=== PATIENT | female | born 1985 | race African-American/Black ===

== ENCOUNTER 2016-12-07 21:27 | Observation (INO) | payer MEDICAID, OTHER ==
[~2016-12-07] VITALS: Ht 162.6 cm; Wt 68.0 kg
[~2016-12-07 21:27] MED LIST: ASPI81TA11 PO
[2016-12-07 21:28] VITALS: BP 116/71; PULSE 72; RESP 16; TEMP 98.4; O2SAT 99
[2016-12-07 22:00] VITALS: PULSE 78; RESP 16; O2SAT 100
[2016-12-07] MEDS ORDERED: SODIUM CHLORIDE 0.9% FLUSH 5 ML FLUSH IVF PRN (22:00)
[2016-12-07] MEDS ORDERED: ASPIRIN 81 MG CHEW TAB PO ONE (22:00)
--- NOTE | 2016-12-07 22:13 | RADRPT ---
EXAM DATE/TIME: 12/07/2016 22:05 [place] COMPARISON: CHEST SINGLE AP, September 08, 2016, 20:16. INDICATIONS : Shortness of breath with chest pain. MEDICAL HISTORY : None. SURGICAL HISTORY : None. ENCOUNTER: Initial ACUITY: 1 day PAIN SCORE: 4/10 LOCATION: Bilateral chest FINDINGS: A single view of the chest demonstrates the lungs to be symmetrically aerated without evidence of mas s, infiltrate or effusion. The cardiomediastinal contours are unremarkable. Osseous structures are intact. CONCLUSION: The lungs are clear. Linden Castaneda MD on December 07, 2016 at 22:11 Board Certified Radiologist. This report was verified electronically.
--- NOTE | 2016-12-07 22:15 | PD ---
HPI Chief Complaint: Chest Pain Time Seen by Provider: 21:47 Travel History International Travel<30 days: No Contact w/Intl Traveler<30days: No Traveled to known affect area: No History of Present Illness HPI The patient is a 31 year old female who presents to the [facility] emergency department with a history of chest pain that awoke her from sound sleep approximately 2-3 hours ago. The patient reports that the pain is a sharp , stabbing pain in the upper portion of the left breast. She reports that there is no tenderness to touch. She denies having any injury to the area or doing any heavy lifting or new exercise program. The patient reports that she has had chest pain in the past with a reportedly negative workup. She reports that she had chest pain and a syncopal event on September 082015. The patient reports that she has shortness of breath associated with this pain, left arm aching, and nausea. She denies having any diaphoresis. She denies having any personal history of diabetes, hypertension, or hyperlipidemia. She does report that she smokes one pack of cigarettes per day. She also has a family history of cardiac disease specifically in her dad who had his first myocardial infarction in his 30s. She denies having any prior history of DVT or PE. The patient denies having any lower extremities edema, calf pain, or erythema. The patient denies any recent fevers, cough, congestion, neck pain, abdominal pain, vomiting, diarrhea, urinary symptoms, or neurologic symptoms. [facility] Past Medical History Narrative Medical The patient's past medical history is significant for thrombocytopenia and , anxiety and depression, asthma that resolved in childhood, history of migraine headaches, history of endometriosis, history of ovarian cysts. I review the patient's record reveals that the patient was admitted to the hospital on September 08 related to chest pain and syncope. The patient had a stress test done at that time that showed an ejection fraction of 58%, small mild area of stress-induced ischemia of the cardiac apex was noted. The patient had a neurology consultation for her syncope. That portion of the workup was essentially unremarkable. Asthma: Yes Blood Disorders: Yes (THROMBOCYTOPENIA DURING ) Anxiety: Yes Depression: Yes Heart Rhythm Problems: No Cardiac Catheterization: No Cardiovascular Problems: No High Cholesterol: No Congestive Heart Failure: No Diabetes: No Diminished Hearing: No Gastrointestinal Disorders: No Headaches: Yes Psychiatric: Yes Reproductive: Yes (ENDOMETROSIS) Integumentary: Yes Immunizations Current: Yes Migraines: Yes ?: Not Menopausal: No : 3 Para: 2 Miscarriage: 1 : 0 Ovarian Cysts: Yes Tubal Ligation: Yes Past Surgical History Narrative Surgical The patient's past surgical history is significant for bilateral tubal ligation , laparoscopy for ovarian cysts, ACL repair of the left knee. Abdominal Surgery: Yes Coronary Artery Bypass Graft: No Genitourinary Surgery: Yes Gynecologic Surgery: Yes (LAP ovarian cysts) Other Surgery: Yes Family History Family Myocardial Infarction: Yes (father) Social History Alcohol Use: Yes (occ) Tobacco Use: Yes (1 ppd) Substance Use: No Allergies-Medications (Allergen,Severity, Reaction): Coded Allergies: Penicillin (Verified Allergy, Mild, RASH, 12/07/16) Sulfa (Verified Allergy, Mild, RASH, 12/07/16) Reported Meds & Prescriptions Reported Meds & Active Scripts Active Aspirin EC (Aspirin) 81 Mg Tabdr 81 Mg PO DAILY 30 Days Review of Systems Except as stated in HPI: all other systems reviewed are Neg General / Constitutional: No: Fever Eyes: No: Visual changes HENT: No: Headaches Cardiovascular: Positive: Chest Pain or Discomfort, No: Diaphoresis Respiratory: Positive: Shortness of Breath Gastrointestinal: Positive: Nausea, No: Abdominal Pain Genitourinary: No: Dysuria Musculoskeletal: No: Pain Skin: No Rash Neurologic: No: Weakness Psychiatric: No: Depression Endocrine: No: Polydipsia Hematologic/Lymphatic: No: Easy Bruising Physical Exam Narrative General: The patient is a well-developed well-nourished female in no acute distress. Head and Neck exam: Head is normocephalic atraumatic. Eyes: Pupils are equal round and reactive to light. Nose: Midline septum with pink mucous membranes Mouth: Dentition unremarkable. Moist mucus membranes. Posterior oropharynx is not erythematous. No tonsillar hypertrophy. Uvula midline. Airway patent. Neck: No palpable lymphadenopathy. No nuchal rigidity. No thyromegaly. Cardiovascular: Regular rate and rhythm without murmurs, gallops, or rubs. No pulse deficit to the extremities. No chest wall tenderness on palpation. No erythema or ecchymosis. No step-off or crepitus. Lungs: Clear to auscultation bilaterally. No wheezes, rhonchi, or rales. Abdomen: Soft, without tenderness to palpation in all 4 quadrants of the abdomen. No guarding, rebound, or rigidity. Normal bowel sounds are audible. Extremities: No clubbing, cyanosis, or edema. 2+ pulses in all 4 extremities. No calf tenderness on palpation. Negative Homans sign. No palpable cords. Back: No spinous process tenderness to palpation. No costovertebral angle tenderness to palpation. Neurologic Exam: Grossly nonfocal. Skin Exam: No rash noted. Intact skin that is warm and dry. Data Data Last Documented VS Vital Signs Date Time Temp Pulse Resp B/P Pulse Ox O2 Delivery O2 Flow Rate FiO2 12/07/16 22:00 100 Room Air 12/07/16 22:00 78 16 12/07/16 21:28 98.4 116/71 Orders Electrocardiogram (12/07/16 21:52) B-Type Natriuretic Peptide (12/07/16 21:52) Ckmb (Isoenzyme) Profile (12/07/16 21:52) Complete Blood Count With Diff (12/07/16 21:52) Comprehensive Metabolic Panel (12/07/16 21:52) D-Dimer (12/07/16 21:52) Magnesium (Mg) (12/07/16 21:52) Prothrombin Time / Inr (Pt) (12/07/16 21:52) Act Partial Throm Time (Ptt) (12/07/16 21:52) Troponin I (12/07/16 21:52) Lipase (12/07/16 21:52) Chest, Single Ap (12/07/16 21:52) Ecg Monitoring (12/07/16 21:52) Bilateral Bp Monitoring (12/07/16 21:52) Iv Access Insert/Monitor (12/07/16 21:52) Oximetry (12/07/16 21:52) Oxygen Administration (12/07/16 21:52) Aspirin Chew (Aspirin Chew) (12/07/16 22:00) Sodium Chloride 0.9% Flush (Ns Flush) (12/07/16 22:00) Ed Urine Pregnancytest Poc (12/07/16 21:52) Nitroglycerin Sl (Nitrostat Sl) (12/07/16 22:30) Aspirin Chew (Aspirin Chew) (12/07/16 22:30) Sodium Chlorid 0.9% 500 Ml Inj (Ns 500 M (12/07/16 22:30) CKMB (12/07/16 21:55) CKMB% (12/07/16 21:55) Place In Observation (12/07/16 23:59) Activity Bed Rest With Brp (12/07/16 23:59) Vital Signs (Adult) Q4H (12/07/16 23:59) Cardiac Rhythm .As Directed (12/07/16 23:59) ^ Notify Dr: Other .PRN (12/07/16 23:59) ^ Notify Dr. Parameters (12/07/16 23:59) Resp Oxygen Nasal Cannula (12/07/16 ) Ckmb (Isoenzyme) Profile (12/08/16 01:00) Troponin I (12/08/16 01:00) Troponin I (12/08/16 04:00) Electrocardiogram (12/08/16 01:00) Electrocardiogram (12/08/16 04:00) ^ Obtain (12/07/16 23:59) Sodium Chloride 0.9% Flush (Ns Flush) (12/08/16 00:00) Sodium Chloride 0.9% Flush (Ns Flush) (12/08/16 09:00) Acetaminophen (Tylenol) (12/08/16 00:00) Ondansetron Inj (Zofran Inj) (12/08/16 00:00) Pantoprazole (Protonix) (12/08/16 09:00) Aspirin (Aspirin) (12/08/16 09:00) Alum Plant Supervisor / Telemetry ADAN.Q8H (12/07/16 23:59) Admit Order (Ed Use Only) (12/07/16 23:59) CKMB (12/08/16 00:53) CKMB% (12/08/16 00:53) Labs Laboratory Tests Test 12/07/16 21:55 White Blood Count 6.4 TH/MM3 Red Blood Count 4.41 MIL/MM3 Hemoglobin 11.4 GM/DL Hematocrit 35.4 % Mean Corpuscular Volume 80.2 FL Mean Corpuscular Hemoglobin 25.9 PG Mean Corpuscular Hemoglobin 32.2 % Concent Red Cell Distribution Width 15.5 % Platelet Count 191 TH/MM3 Mean Platelet Volume 11.4 FL Neutrophils (%) (Auto) 38.9 % Lymphocytes (%) (Auto) 47.3 % Monocytes (%) (Auto) 9.1 % Eosinophils (%) (Auto) 4.3 % Basophils (%) (Auto) 0.4 % Neutrophils # (Auto) 2.5 TH/MM3 Lymphocytes # (Auto) 3.0 TH/MM3 Monocytes # (Auto) 0.6 TH/MM3 Eosinophils # (Auto) 0.3 TH/MM3 Basophils # (Auto) 0.0 TH/MM3 CBC Comment DIFF FINAL Differential Comment Prothrombin Time 10.8 SEC Prothromb Time International 1.0 RATIO Ratio Activated Partial 29.3 SEC Thromboplast Time D-Dimer Quantitative (PE/DVT) LESS THAN 0.19 MG/L FEU Sodium Level 142 MEQ/L Potassium Level 3.5 MEQ/L Chloride Level 108 MEQ/L Carbon Dioxide Level 26.8 MEQ/L Anion Gap 7 MEQ/L Blood Urea Nitrogen 12 MG/DL Creatinine 0.77 MG/DL Estimat Glomerular Filtration 106 ML/MIN Rate Random Glucose 82 MG/DL Calcium Level 8.3 MG/DL Magnesium Level 1.8 MG/DL Total Bilirubin 0.6 MG/DL Aspartate Amino Transf 12 U/L (AST/SGOT) Alanine Aminotransferase 19 U/L (ALT/SGPT) Alkaline Phosphatase 53 U/L Total Creatine Kinase 266 U/L Creatine Kinase MB 0.8 NG/ML Creatine Kinase MB % 0.3 % Troponin I LESS THAN 0.02 NG/ML B-Type Natriuretic Peptide 6 PG/ML Total Protein 6.7 GM/DL Albumin 3.6 GM/DL Lipase 279 U/L MDM Medical Decision Making Medical Screen Exam Complete: Yes Emergency Medical Condition: Yes Medical Record Reviewed: Yes Interpretation(s) Last Impressions Chest X-Ray 12/07/162151 Signed Impressions: Service Date/Time: Wednesday, December 07, 2016 22:05 - CONCLUSION: The lungs are clear. Linden Castaneda MD Differential Diagnosis Acute coronary syndrome, versus pulmonary embolism, versus pleurisy, versus costochondritis, versus pneumonia, versus pneumothorax. Narrative Course During the course of the patients emergency department visit, the patients history, examination, and differential diagnosis were reviewed with the patient. The patient had IV access obtained and blood work sent for analysis. The patient was placed on a ekg monitor tech with oximetry and blood pressure monitoring. The patient had an EKG done on arrival. The patient's EKG shows a sinus rhythm heart rate of 78, no acute ST segment elevation or depression. QRS duration is 85 ms, QTC 376 ms. The patient was provided aspirin 81 mg by mouth 1. The patient reports that she did take one baby aspirin earlier today. She reports that she takes this daily. The patient was given a sublingual nitroglycerin 1. The patient continued to have discomfort and was given Protonix 40 mg IV, Toradol 15 mg IV. The patients laboratory studies were reviewed and remarkable for a white count of 6.4, hemoglobin 11.4, platelets 191 with lymphocytes 47.3, CMP is remarkable for chloride of 108, calcium 8.3, AST 12, CPK 266 with 0.3 CK-MB. BNP is 6, troponin I less than 0.02, lipase 279. PT PTT unremarkable, d-dimer less than 0.19 decreased the likelihood of pulmonary embolism in this patient with no other significant risk factors. Radiology studies were reviewed and remarkable for a chest x-ray that shows no acute abnormality. The patients results were discussed with the patient, including the plan of care. I explained that further testing and/ or monitoring is indicated based on the patients history, examination, and/ or laboratory findings. Therefore, I recommended admission for additional evaluation. The patient expressed understanding and was agreeable with this plan. The patient was admitted to the hospital in stable condition and sent to a bed under the care of the chest pain center. Diagnosis Primary Impression: Chest pain, rule out acute myocardial infarction Admitting Information Admitting Physician Requests: Observation Kamla Ogden MD Dec 07, 2016 22:15
[2016-12-07 22:25] LABS: AUTOMATED NEUTROPHIL # 2.5 TH/MM3 (1.8-7.7); BASOPHIL % 0.4 % (0.0-2.0); EOSINOPHIL # 0.3 TH/MM3 (0-0.4); EOSINOPHIL % 4.3 % (0.0-4.0); HEMATOCRIT 35.4 % (35.0-46.0); HEMO FLAGS DIFF FINAL; LYMPH % 47.3 % (9.0-44.0); MEAN CELL VOLUME 80.2 FL (80.0-100.0); MEAN CORPUSCULAR HEMOGLOBIN 25.9 PG (27.0-34.0); MEAN CORPUSCULAR HGB CONC 32.2 % (32.0-36.0); MONO % 9.1 % (0.0-8.0); NEUT % 38.9 % (16.0-70.0); PLATELET COUNT 191 TH/MM3 (150-450); RED BLOOD COUNT 4.41 MIL/MM3 (4.00-5.30); RED CELL DISTRIBUTION WIDTH 15.5 % (11.6-17.2); WHITE BLOOD COUNT 6.4 TH/MM3 (4.0-11.0)
[2016-12-07] MEDS ORDERED: NITROGLYCERIN 0.4 MG SL 25 TABS/BTL SL ONE (22:30)
[2016-12-07] MEDS ORDERED: ASPIRIN 81 MG CHEW TAB CHEW ONE (22:30)
[2016-12-07] MEDS ORDERED: SODIUM CHLORID 0.9% 500 ML INJ 500 ML IV ONE (22:30)
[2016-12-07 22:39] LABS: ALT (GPT) 19 U/L (10-53); ANION GAP 7 MEQ/L (5-15); AST (GOT) 12 U/L (15-37); BICARBONATE 26.8 MEQ/L (21.0-32.0); BLOOD UREA NITROGEN 12 MG/DL (7-18); CHLORIDE 108 MEQ/L (98-107); GLOMERULAR FILTRATION RATE 106 ML/MIN (>89); MAGNESIUM 1.8 MG/DL (1.5-2.5); POTASSIUM 3.5 MEQ/L (3.5-5.1); SODIUM (NA) 142 MEQ/L (136-145)
[2016-12-07 22:43] LABS: ALKALINE PHOSPHATASE 53 U/L (45-117); CREATINE KINASE 266 U/L (26-192); TOTAL BILIRUBIN ADULT 0.6 MG/DL (0.2-1.0)
[2016-12-07 22:57] LABS: CKMB 0.8 NG/ML (0.5-3.6)
[2016-12-07 23:08] LABS: APTT (PATIENT) 29.3 SEC (24.3-30.1); PROTHROMBIN TIME - PATIENT 10.8 SEC (9.8-11.6)
[2016-12-08] VITALS (9 sets, daily range): BP systolic 82–131; BP diastolic 42–65; PULSE 60–85; RESP 16–20; TEMP 97.7–98.5; O2SAT 97–100
[2016-12-08] MEDS ORDERED: SODIUM CHLORIDE 0.9% FLUSH 5 ML FLUSH IVF PRN
[2016-12-08] MEDS ORDERED: ONDANSETRON HCL 4 MG/2 ML VIAL IV PRN
[2016-12-08] MEDS ORDERED: ACETAMINOPHEN 500 MG CPLT PO PRN
[2016-12-08] MEDS ORDERED: KETOROLAC TROMETHAMINE 30 MG/ML (IVP) VIAL IV PUSH ONE (00:15)
[2016-12-08 01:22] LABS: CREATINE KINASE 233 U/L (26-192)
[2016-12-08 01:34] LABS: CKMB 0.5 NG/ML (0.5-3.6)
[2016-12-08] MEDS ORDERED: SODIUM CHLOR 0.9% 1000 ML INJ 1,000 ML IV SCH (08:34)
[2016-12-08] MEDS ORDERED: ASPIRIN 325 MG TAB PO SCH (09:00)
[2016-12-08] MEDS ORDERED: PANTOPRAZOLE SOD 40 MG DELAYED RELEASE TAB PO SCH (09:00)
[2016-12-08] MEDS ORDERED: SODIUM CHLORIDE 0.9% FLUSH 5 ML FLUSH IVF SCH (09:00)
[2016-12-08 09:26] LABS: HDL CHOLESTEROL 57.7 MG/DL (40.0-60.0)
--- NOTE | 2016-12-08 10:00 | MH ---
cc: WILL DOUGLASS MD DATE OF ADMISSION: 12/08/2016 DATE OF : 1985 CHIEF COMPLAINT Chest pain. HISTORY OF PRESENT ILLNESS This is a 31-year-old female that presents to the ED via private vehicle complaining of her chest hurting. She describes it as a stabbing discomfort that began yesterday. She states she has had this in the past. She has been here two other times since August. On review of records she had a Lexiscan September 09, 2016 which revealed a small mild area of stress induced ischemia at the apex with EF of 56%. No further testing was obtained at the time. She has a hard time describing how long the discomfort lasts since yesterday. She says it seems like it may have lasted all day but it may go away for seconds at a time. She is short of breath and nauseous at times and also feeling dizzy. Denies diaphoresis. Denies sensation of heart beating rapidly or irregularly. She denies syncope today but states she had a syncopal episode in the past on a prior admission. Denies . PAST MEDICAL HISTORY Denies hypertension, hyperlipidemia, diabetes and known CAD. FAMILY HISTORY Father had ___ CAD in his early 40s with MIs. SOCIAL HISTORY She smokes one-pack of cigarettes daily. Denies illicit drugs. She has occasional alcohol. ALLERGIES PENICILLIN AND SULFA. PAST SURGICAL HISTORY Laparoscopy secondary to ovarian cyst. Bilateral tubal ligation. CURRENT MEDICATIONS Denies. REVIEW OF SYSTEMS GENERAL: Denies fevers or chills. Denies recent illnesses. HEENT: Denies headache, earache, sore throat, difficulty swallowing. CARDIOVASCULAR: Describes the discomfort as mentioned above. Denies diaphoresis. Denies sensation of beating rapidly or irregularly. Denies syncope. RESPIRATORY: She has shortness of breath at times. Denies inspirational chest discomfort. Denies coughing, wheezing or hemoptysis. GI: Denies nausea, vomiting, diarrhea, abdominal pain or blood in stool. MUSCULOSKELETAL: Denies joint pain or edema. Denies calf pain or edema. NEUROVASCULAR: Denies headache or dizziness. ENDOCRINE: Denies polyuria or polydipsia. HEMATOLOGIC: Denies easy bruising. SKIN: Denies rash or itching. PHYSICAL EXAMINATION VITAL SIGNS: In the emergency department initially included a blood pressure of 116/71, heart rate 72, respirations 16, pulse oximetry 99% on room air and she is afebrile. Most recent vital signs include blood pressure 86/54, heart rate was 60, respirations 17, pulse oximetry 100% on room air and she is afebrile. GENERAL: The patient is seen in the examination room in no apparent distress. She is pleasant. She speaks in clear and complete sentences. HEENT: Head is atraumatic, normocephalic. NECK: Supple without lymphadenopathy. Trachea is midline. No JVD or carotid bruits. CARDIOVASCULAR: Regular rate and rhythm without murmur, gallop or rub. RESPIRATORY: Lungs are clear to auscultation bilaterally. No wheezing, rales or rhonchi. No use of accessory muscles. GI: Abdomen nontender. Bowel sounds are normal. MUSCULOSKELETAL: The patient is moving upper and lower extremities freely. No joint tenderness or edema. No calf tenderness or edema, no Homans' sign. Strong pulses in upper and lower extremities. NEUROVASCULAR: The patient is alert and oriented. Cranial nerves II-XII grossly intact. No focal deficit and speech is clear. SKIN: No rash and turgor is normal. LABORATORY DATA CBC essentially is unremarkable. Coagulation studies are unremarkable including a D-dimer that is less than 0.19. Complete metabolic panel essentially is unremarkable. Serial cardiac enzymes have troponins normal x3. BNP is normal at 6. Lipase is normal at 279. IMAGING STUDIES A single view chest x-ray read by radiology as lungs are clear. A point of care test obtained in the ER was read as negative. EKGs have sinus rhythm without significant ST-segment depression or elevation. ASSESSMENT AND PLAN 1. Chest pain: The patient had serial cardiac enzymes and EKGs for ruling out purposes. She has been seen by Dr. Will Douglass of cardiology in the chest pain center. She had multiple visits for chest pain and had an abnormal nuclear stress test in September of last year. To further evaluate her discomfort in her chest, at this time heart catheterization will be needed. Dr. Will Douglass has spoke with Dr. Castro and she has agreed to take the patient in transfer. The patient will now be admitted to Dr. Castro with consultation to Dr. Michelle. Will get a lipid panel as well. 2. Tobacco abuse: The patient has been counseled on the importance of smoking cessation. The patient is stable at this time. She is agreeable to this plan. Dictated by: LITZY Coleman-Can MD MARINE Alvarez/VERÓNICA /8:47 AM /10:00 AM
[2016-12-08] MEDS ORDERED: HEPARIN-NS/PF INJ 500 ML ONE (13:10)
[2016-12-08] MEDS ORDERED: MIDAZOLAM HCL 2 MG/2 ML VIAL ONE ×2 (13:10→13:34)
--- NOTE | 2016-12-08 13:32 | EKG ---
Date Performed: 12/08/2016 Time Performed: 04:06:22 PTAGE: 31 years EKG: Sinus rhythm NORMAL ECG PREVIOUS TRACING : 12/08/2016 00.49 Since previous tracing, no significant change noted DOCTOR: Henry Santos Interpretating Date/Time 12/08/2016 13:31:41
--- NOTE | 2016-12-08 13:35 | EKG ---
Date Performed: 12/08/2016 Time Performed: 00:49:05 PTAGE: 31 years EKG: Sinus rhythm NORMAL ECG PREVIOUS TRACING : 09/09/2016 03.29 Since previous tracing, no significant change noted DOCTOR: Henry Santos Interpretating Date/Time 12/08/2016 13:33:40
--- NOTE | 2016-12-08 13:38 | EKG ---
Date Performed: 12/07/2016 Time Performed: 21:52:37 PTAGE: 31 years EKG: Sinus rhythm NORMAL ECG NO PREVIOUS TRACING DOCTOR: Henry Santos Interpretating Date/Time 12/08/2016 13:36:05
[2016-12-08] MEDS ORDERED: BACITRACIN OINT 0.9 GM PKT TOP ONE (13:45)
[2016-12-08] MEDS ORDERED: MISC INFORMATION XX ONE (13:45)
--- NOTE | 2016-12-08 14:03 | HHI.DCPOC ---
Discharge Care Plan Goals to Promote Your Health * To prevent worsening of your condition and complications * To maintain your health at the optimal level Directions to Meet Your Goals Take your medications as prescribed Follow your dietary instruction Follow activity as directed Keep your appointments as scheduled Take your immunizations and boosters as scheduled If your symptoms worsen call your PCP, if no PCP go to Urgent Care Center or Emergency Room Smoking is Dangerous to Your Health. Avoid second hand smoke Call the 24-hour hour crisis hotline for domestic abuse at Keri Castro MD Dec 08, 2016 14:03
--- NOTE | 2016-12-08 14:09 | HHI.PR ---
Addendum to Inpatient Note Addendum Reason: Additional Documentation Additional Information S/P cath by Dr Michelle cardiology , cleared the patient for DC To follow up as OP with PCP and consultants. DC home in fairly well condition> To follow up with PCP and consultants as OP. Meds per med reconciliations Diet regular healthy diet Activity ad mahendra as tolerated Keri Castro MD Dec 08, 2016 14:09
[2016-12-08] MEDS ORDERED: IOHEXOL 350 MG/ML 50 ML BTL (for Cath Lab) OTHER ONE (14:57)
--- NOTE | 2016-12-08 22:04 | MB ---
cc: RON SON DATE OF CONSULTATION 12/08/2016 INDICATION Chest pain. HISTORY OF THE PRESENT ILLNESS This is a 31-year-old female without prior history of heart disease who presented to the emergency department with complaints of intermittent chest pain. She had prior Lexiscan back in September which revealed a small area of stress-induced ischemia at the apex. She was seen by Dr. Santos who spoke with Dr. Castro. She has had now multiple visits for chest pain in addition to her abnormal nuclear stress test. After discussion with Dr. Santos we elected to proceed with cardiac catheterization to rule out obstructive coronary artery disease. PAST MEDICAL HISTORY None. FAMILY HISTORY Father had early coronary artery disease in his 40s. SOCIAL HISTORY She smokes a pack a day. Denies any drug use or alcohol use. ALLERGIES PENICILLIN AND SULFA. REVIEW OF SYSTEMS A 12-point review of systems was performed and negative unless otherwise noted in the history of present illness. PHYSICAL EXAMINATION VITAL SIGNS: Temperature 98, pulse 60, blood pressure is 98/65 mmHg. GENERAL: Alert and oriented times three in no acute distress. HEENT: Exam shows pupils reactive to light and accommodation. Extraocular movements are intact. NECK: No elevation in jugular venous distention. No thyromegaly or lymphadenopathy. No carotid bruits. LUNGS: Clear to auscultation bilaterally. CARDIOVASCULAR: Regular rate and rhythm without murmurs, rubs or gallops. ABDOMEN: Nontender. Nondistended. Good bowel sounds. No hepatosplenomegaly. EXTREMITIES: Snow no clubbing, cyanosis or edema. Good peripheral pulses. NEUROLOGICAL: Cranial nerves intact. Motor and sensory grossly intact. LABORATORY DATA WBC 6.4, hemoglobin 11.4, platelet count 191. INR is 1.0. Sodium is 142, potassium 3.5. Troponin negative x3. ASSESSMENT 1. Chest pain. 2. Abnormal stress test. PLAN Given the patient's progressive symptoms and history of abnormal stress test, and after a lengthy discussion with Dr. Santos we would like to proceed with diagnostic coronary angiography. N.p.o. after midnight. Risks, benefits and alternatives discussed with the patient. The patient understood, consented to the procedures. MD TAHIR Wakefield/ALANIS /1:43 PM /9:51 PM MTDVasyl
--- NOTE | 2016-12-08 22:10 | MA ---
cc: RON SON DATE 12/08/2016 PROCEDURE PERFORMED 1. Fluoroscopy with interpretation. 2. Left heart catheterization. 3. Coronary angiography. METHOD The risks, benefits and alternatives were discussed with the patient. The patient understood and consented to the procedure. PROCEDURE The right wrist was prepped and draped in a sterile fashion. The right wrist was anesthetized with 2% Lidocaine. The right radial artery was cannulated and a 6 Romansh 7 cm sheath was placed without difficulty. LEFT HEART CATHETERIZATION Intraventricular hemodynamics measured at 106/10 mmHg. CORONARY ANGIOGRAPHY 1. Left main coronary is angiographically normal. 2. Left anterior descending coronary artery is angiographically normal. 3. Left circumflex, left dominant, angiographically normal. 4. Right coronary is non dominant, angiographically normal. CONCLUSION 1. Angiographically normal coronary arteries. 2. Normal left-sided filling pressures. PLAN The patient's symptoms are noncardiac. She can be treated conservatively and follow up with her primary care in the outpatient setting. No need for cardiac followup. MD TAHIR Wakefield/ALANIS /1:46 PM /10:02 PM
== END 2016-12-08 14:58 | disposition home or self-care (01) ==
LOC: NEPE 21:27 → NEDA 12-08 00:04 → NEPHCDU 12-08 02:14
PROVIDERS: ADMIT Hospitalist; ATTEND Hospitalist
DX: R07.89 Other chest pain (principal); R55 Syncope and collapse; R06.02 Shortness of breath; F17.210 Nicotine dependence, cigarettes, uncomplicated; J45.909 Unspecified asthma, uncomplicated; R94.39 Abnormal result of other cardiovascular function study; Z82.49 Family history of ischemic heart disease and other diseases of the circulatory system
CPT/HCPCS: 71010; 80053; 80061; 82550; 82552; 83690; 83735; 83880; 84484; 84703; 85025; 85379; 85610; 85730; 93005; 93454; 96360; 99285; C1769; C1893; G0378; J1644; J1885; J2250; J3010; J7030; J7040; Q9967

== ENCOUNTER 2017-01-20 21:07 | Emergency (ER) | payer MEDICAID ==
[~2017-01-20] VITALS: Ht 162.6 cm; Wt 68.0 kg
[2017-01-20 21:09] VITALS: BP 108/66; PULSE 74; RESP 16; TEMP 97.8; O2SAT 100
--- NOTE | 2017-01-22 14:15 | EKG ---
Date Performed: 01/20/2017 Time Performed: 21:30:26 PTAGE: 31 years EKG: Sinus rhythm NORMAL ECG NO PREVIOUS TRACING DOCTOR: Bayron Boykin Interpretating Date/Time 01/22/2017 14:03:54
== END 2017-01-20 22:18 | disposition left against medical advice (07) ==
LOC: NED 21:07
DX: Z53.21 Procedure and treatment not carried out due to patient leaving prior to being seen by health care provider (principal)
CPT/HCPCS: 93005; 99281

== ENCOUNTER 2017-02-22 16:18 | Emergency (ER) | payer SELFPAY ==
[~2017-02-22] VITALS: Ht 162.6 cm; Wt 68.0 kg
[2017-02-22 16:21] VITALS: BP 114/65; PULSE 98; RESP 15; TEMP 98.2; O2SAT 98
--- NOTE | 2017-02-22 16:51 | PD ---
HPI . earrings stuck in ear for 4 years Chief Complaint: Pain: Acute or Chronic Time Seen by Provider: 16:51 Travel History International Travel<30 days: No Contact w/Intl Traveler<30days: No Traveled to known affect area: No History of Present Illness HPI 31-year-old female with no past history here with complaints of having her ear ring stuck in her ear for over 4 years. She decided to come in today for evaluation since the left ear has been hurting more than usual. She says she has been trying to remove these areas multiple times and has failed. She is hoping we could take them out of her ears. The left ear ring is completely overgrown into the ear lobe. Denies any fever, chills or other issues. PFSH Past Medical History Asthma: Yes Blood Disorders: Yes (THROMBOCYTOPENIA DURING ) Anxiety: Yes Depression: Yes Heart Rhythm Problems: No Cardiac Catheterization: No Cardiovascular Problems: No High Cholesterol: No Congestive Heart Failure: No Diabetes: No Diminished Hearing: No Gastrointestinal Disorders: No Headaches: Yes Psychiatric: Yes Reproductive: Yes (ENDOMETROSIS) Integumentary: Yes Immunizations Current: Yes Migraines: Yes Tetanus Vaccination: > 5 Years ?: Not Menopausal: No : 3 Para: 2 Miscarriage: 1 : 0 Ovarian Cysts: Yes Tubal Ligation: Yes Past Surgical History Abdominal Surgery: Yes Coronary Artery Bypass Graft: No Genitourinary Surgery: Yes Gynecologic Surgery: Yes (LAP ovarian cysts) Other Surgery: Yes Family History Family Myocardial Infarction: Yes (father) Social History Alcohol Use: Yes (occ) Tobacco Use: Yes (1 ppd) Substance Use: No Allergies-Medications (Allergen,Severity, Reaction): Coded Allergies: Penicillin (Verified Allergy, Mild, RASH, 02/22/17) Sulfa (Verified Allergy, Mild, RASH, 02/22/17) Reported Meds & Prescriptions Reported Meds & Active Scripts Active Clindamycin (Clindamycin HCl) 300 Mg Cap 300 Mg PO TID Aspirin EC (Aspirin) 81 Mg Tabdr 81 Mg PO DAILY 30 Days Review of Systems General / Constitutional: No: Fever Eyes: No: Visual changes HENT: No: Headaches Cardiovascular: No: Chest Pain or Discomfort Respiratory: No: Shortness of Breath Gastrointestinal: No: Abdominal Pain Genitourinary: No: Dysuria Musculoskeletal: No: Pain Skin: Positive Other (left earring overgrown into ear lobe, right ear lobe no abn), No Rash Neurologic: No: Weakness Psychiatric: No: Depression Endocrine: No: Polydipsia Hematologic/Lymphatic: No: Easy Bruising Physical Exam Narrative GENERAL: AAO x 3, no acute distress, Well-nourished, well-developed patient. SKIN: Warm and dry. No visible rashes or bruising. HEAD: Normocephalic and atraumatic. EYES: No scleral icterus. No injection or drainage. ENT: No nasal drainage noted. Mucous membranes pink. Airway patent. left ear lobe, earring backing overgrown, mild erythema, no edema, no purulence, right ear lobe normal NECK: Supple, trachea midline. No JVD. No lymphadenopathy CARDIOVASCULAR: Regular rate and rhythm without murmurs, gallops, or rubs. RESPIRATORY: Breath sounds equal bilaterally. No accessory muscle use. No rhonchi or rales. GASTROINTESTINAL: Abdomen soft, non-tender, nondistended. EXTREMITIES: No cyanosis or edema. BACK: Nontender without obvious deformity. No CVA tenderness. PSYCH: AAO x 3, normal affect. Data Data Last Documented VS Vital Signs Date Time Temp Pulse Resp B/P Pulse Ox O2 Delivery O2 Flow Rate FiO2 02/22/17 16:21 98.2 98 15 114/65 98 MDM Medical Decision Making Medical Screen Exam Complete: Yes Emergency Medical Condition: Yes Medical Record Reviewed: Yes Differential Diagnosis cellulitis, earlobe fb, less likely abscess Narrative Course 31-year-old female with no past history here with complaints of having her ear ring stuck in her ear for over 4 years. She decided to come in today for evaluation since the left ear has been hurting more than usual. She says she has been trying to remove these areas multiple times and has failed. She is hoping we could take them out of her ears. The left ear ring is completely overgrown into the ear lobe. Denies any fever, chills or other issues. Patient seen and examined. She does not have any type of abscess formation of her left earlobe. There appears to be some mild erythema. I'll treat her for a very superficial cellulitis. Needs to see a plastic surgeon to have this earring backing removed. I've explained this to her. Diagnosis Primary Impression: Cellulitis of earlobe Qualified Code: H60.12 - Cellulitis of earlobe, left Patient Instructions: General Instructions Additional Instructions: Please return to emergency department if your symptoms return or worsen. Follow up with your primary care provider. Take medications as prescribed. Follow-up with a plastic surgeon to have these earrings removed. You can use [id number] ibuprofen or Tylenol as needed for pain. Med/Other Pt SpecificInfo: Prescription(s) given Scripts Clindamycin 300 Mg [id number] Mg PO TID #21 CAP Prov:Iván Salgado MD 02/22/17 Disposition: 01 DISCHARGE HOME Condition: Stable Blanca Phelan Feb 22, 2017 16:51
[2017-02-22] MEDS ORDERED: CLIN1CAP6 PO (17:11)
== END 2017-02-22 17:25 | disposition home or self-care (01) ==
LOC: NEPD 16:18
DX: H60.12 Cellulitis of left external ear (principal); F17.210 Nicotine dependence, cigarettes, uncomplicated
CPT/HCPCS: 99282

== ENCOUNTER 2017-06-17 17:46 | Emergency (ER) | payer MEDICAID ==
[~2017-06-17] VITALS: Ht 162.6 cm; Wt 65.0 kg
[~2017-06-17 17:46] MED LIST changes: +CLIN1CAP6 PO
[2017-06-17 17:50] VITALS: BP 99/62; PULSE 79; RESP 16; TEMP 98.7; O2SAT 100
[2017-06-17] MEDS ORDERED: SODIUM CHLORIDE 0.9% FLUSH 10 ML FLUSH IVF PRN (18:00)
[2017-06-17 18:03] VITALS: O2SAT 100
--- NOTE | 2017-06-17 18:03 | PD ---
HPI Chief Complaint: chest pain Time Seen by Provider: 18:01 Travel History International Travel<30 days: No Contact w/Intl Traveler<30days: No History of Present Illness HPI 31-year-old female presents to the ED via EMS for evaluation of sudden onset 9/ 10 left-sided chest pain. Onset approximately 45 minutes ago at rest. Described as sharp, constant, radiating to the left shoulder with numbness and tingling of the left arm. No alleviating or exacerbating factors reported. She denies associated shortness of breath, palpitations, diaphoresis, nausea or vomiting. She endorses history of similar pain. She had a stress test and cardiac catheter one year ago. She states that she also wore a Holter monitor that was unremarkable. Denies risk of , endorses tubal ligation. PFSH Past Medical History Asthma: Yes Blood Disorders: Yes (THROMBOCYTOPENIA DURING ) Anxiety: Yes Depression: Yes Heart Rhythm Problems: No Cardiac Catheterization: No Cardiovascular Problems: No High Cholesterol: No Congestive Heart Failure: No Diabetes: No Diminished Hearing: No Gastrointestinal Disorders: No Headaches: Yes Psychiatric: Yes Reproductive: Yes (ENDOMETROSIS) Integumentary: Yes Immunizations Current: Yes Migraines: Yes Menopausal: No : 3 Para: 2 Miscarriage: 1 : 0 Ovarian Cysts: Yes Tubal Ligation: Yes Past Surgical History Abdominal Surgery: Yes Coronary Artery Bypass Graft: No Genitourinary Surgery: Yes Gynecologic Surgery: Yes (LAP ovarian cysts) Other Surgery: Yes Social History Alcohol Use: Yes (occ) Tobacco Use: Yes (1 ppd) Substance Use: No Allergies-Medications (Allergen,Severity, Reaction): Coded Allergies: Penicillin (Verified Allergy, Mild, RASH, 06/17/17) Sulfa (Verified Allergy, Mild, RASH, 06/17/17) Reported Meds & Prescriptions Reported Meds & Active Scripts Active No Active Prescriptions or Reported Medications Review of Systems Except as stated in HPI: all other systems reviewed are Neg Physical Exam Narrative GENERAL: Well-nourished, well-developed AA female in no acute distress. SKIN: Focused skin assessment warm/dry. HEAD: Normocephalic. EYES: No scleral icterus. No injection or drainage. NECK: Supple, trachea midline. No JVD or lymphadenopathy. CARDIOVASCULAR: Regular rate and rhythm without murmurs, gallops, or rubs. RESPIRATORY: Breath sounds clear and equal bilaterally. No accessory muscle use. GASTROINTESTINAL: Abdomen soft, non-tender, nondistended. Active bowel sounds. MUSCULOSKELETAL: No cyanosis, or edema. BACK: Nontender without obvious deformity. No CVA tenderness. Data Data Last Documented VS Vital Signs Date Time Temp Pulse Resp B/P Pulse Ox O2 Delivery O2 Flow Rate FiO2 06/17/17 18:22 103/62 105/65 06/17/17 18:03 100 Room Air 06/17/17 17:50 98.7 79 16 Orders Electrocardiogram (06/17/17 18:00) Basic Metabolic Panel (Bmp) (06/17/17 18:00) Ckmb (Isoenzyme) Profile (06/17/17 18:00) Complete Blood Count With Diff (06/17/17 18:00) Magnesium (Mg) (06/17/17 18:00) Prothrombin Time / Inr (Pt) (06/17/17 18:00) Act Partial Throm Time (Ptt) (06/17/17 18:00) Troponin I (06/17/17 18:00) Chest, Single Ap (06/17/17 18:00) Ecg Monitoring (06/17/17 18:00) Bilateral Bp Monitoring (06/17/17 18:00) Iv Access Insert/Monitor (06/17/17 18:00) Oximetry (06/17/17 18:00) Sodium Chloride 0.9% Flush (Ns Flush) (06/17/17 18:00) Ed Urine Pregnancytest Poc (06/17/17 18:00) CKMB (06/17/17 18:00) CKMB% (06/17/17 18:00) Calcium Carbonate Chew (Tums Chew) (06/17/17 19:00) Labs Laboratory Tests Test 06/17/17 18:00 White Blood Count 5.2 TH/MM3 Red Blood Count 4.15 MIL/MM3 Hemoglobin 11.0 GM/DL Hematocrit 33.1 % Mean Corpuscular Volume 79.8 FL Mean Corpuscular Hemoglobin 26.4 PG Mean Corpuscular Hemoglobin 33.1 % Concent Red Cell Distribution Width 18.0 % Platelet Count 130 TH/MM3 Mean Platelet Volume 10.6 FL Neutrophils (%) (Auto) 37.9 % Lymphocytes (%) (Auto) 46.5 % Monocytes (%) (Auto) 8.2 % Eosinophils (%) (Auto) 6.7 % Basophils (%) (Auto) 0.7 % Neutrophils # (Auto) 2.0 TH/MM3 Lymphocytes # (Auto) 2.4 TH/MM3 Monocytes # (Auto) 0.4 TH/MM3 Eosinophils # (Auto) 0.4 TH/MM3 Basophils # (Auto) 0.0 TH/MM3 CBC Comment DIFF FINAL Differential Comment Prothrombin Time 12.0 SEC Prothromb Time International 1.1 RATIO Ratio Activated Partial 31.5 SEC Thromboplast Time Sodium Level 140 MEQ/L Potassium Level 3.8 MEQ/L Chloride Level 109 MEQ/L Carbon Dioxide Level 24.6 MEQ/L Anion Gap 6 MEQ/L Blood Urea Nitrogen 10 MG/DL Creatinine 0.69 MG/DL Estimat Glomerular Filtration 120 ML/MIN Rate Random Glucose 92 MG/DL Calcium Level 8.1 MG/DL Magnesium Level 2.1 MG/DL Total Creatine Kinase 150 U/L Creatine Kinase MB LESS THAN 0.5 NG/ML Troponin I LESS THAN 0.02 NG/ML MDM Medical Decision Making Medical Screen Exam Complete: Yes Emergency Medical Condition: Yes Interpretation(s) EKG rate 76, sinus rhythm. OH interval 184, QRS 85, QTc 382. Normal axis. No ST elevations or depressions. Reviewed by Dr. Toney. Differential Diagnosis Atypical chest pain versus musculoskeletal pain versus less likely ACS versus other Narrative Course 31-year-old female presents to the ED via EMS for evaluation of sudden onset 9/ 10 left-sided chest pain. Onset approximately 45 minutes ago at rest. Described as sharp, constant, radiating to the left shoulder with numbness and tingling of the left arm. No alleviating or exacerbating factors reported. She denies associated shortness of breath, palpitations, diaphoresis, nausea or vomiting. She endorses history of similar pain. She had a stress test and cardiac catheter one year ago. She states that she also wore a Holter monitor that was unremarkable. Vitals reviewed. Physical exam is unremarkable. The patient was administered aspirin and nitroglycerin en route with no improvement of her symptoms. EKG as above. Chest x-ray without acute CP disease. Cardiac enzymes negative 1. Hemoglobin 11, calcium mildly deficient, no other concerning lab abnormalities. Patient was administered calcium chews. I reviewed the record and she had a normal cardiac catheter on 12/08/16 and Holter monitor report with occasional ectopy in September 2016. On recheck she's had no improvement of her symptoms but she declines ibuprofen. She is amenable to outpatient evaluation. She is stable and discharged home. Diagnosis Primary Impression: Chest pain Qualified Code: R07.9 - Chest pain, unspecified type Additional Impression: Hypocalcemia Referrals: [facility] Primary Care Physician Patient Instructions: Chest Pain (ED), General Instructions, Hypocalcemia (ED) Additional Instructions: Rest, hydrate. Eat calcium rich foods or supplement by taking Tums daily. 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 Return to the ED for any urgent or emergent medical condition. Scripts No Active Prescriptions or Reported Meds Disposition: 01 DISCHARGE HOME Condition: Stable Addie Blandon Jun 17, 2017 18:03
[2017-06-17 18:22] VITALS: BP_SYST 103; BP_SYST 105; BP_DIAS 62; BP_DIAS 65
[2017-06-17 18:30] LABS: BASOPHIL % 0.7 % (0.0-2.0); EOSINOPHIL # 0.4 TH/MM3 (0-0.4); EOSINOPHIL % 6.7 % (0.0-4.0); HEMATOCRIT 33.1 % (35.0-46.0); HEMO FLAGS DIFF FINAL; LYMPH % 46.5 % (9.0-44.0); LYMPHOCYTE # 2.4 TH/MM3 (1.0-4.8); MEAN CELL VOLUME 79.8 FL (80.0-100.0); MEAN CORPUSCULAR HEMOGLOBIN 26.4 PG (27.0-34.0); MEAN CORPUSCULAR HGB CONC 33.1 % (32.0-36.0); MONO % 8.2 % (0.0-8.0); NEUT % 37.9 % (16.0-70.0); PLATELET COUNT 130 TH/MM3 (150-450); RED BLOOD COUNT 4.15 MIL/MM3 (4.00-5.30); WHITE BLOOD COUNT 5.2 TH/MM3 (4.0-11.0)
[2017-06-17 18:45] LABS: CREATINE KINASE 150 U/L (26-192)
[2017-06-17 18:48] LABS: ANION GAP 6 MEQ/L (5-15); BICARBONATE 24.6 MEQ/L (21.0-32.0); BLOOD UREA NITROGEN 10 MG/DL (7-18); CHLORIDE 109 MEQ/L (98-107); GLOMERULAR FILTRATION RATE 120 ML/MIN (>89); MAGNESIUM 2.1 MG/DL (1.5-2.5); POTASSIUM 3.8 MEQ/L (3.5-5.1); SODIUM (NA) 140 MEQ/L (136-145)
--- NOTE | 2017-06-17 18:50 | RADRPT ---
EXAM DATE/TIME: 06/17/2017 18:01 [facility] COMPARISON: CHEST SINGLE AP, December 07, 2016, 22:05. INDICATIONS : Chest pain. MEDICAL HISTORY : None. SURGICAL HISTORY : None. ENCOUNTER: Initial ACUITY: 1 day PAIN SCORE: 6/10 LOCATION: Bilateral chest FINDINGS: A single view of the chest demonstrates the lungs to be symmetrically aerated without evidence of mas s, infiltrate or effusion. The cardiomediastinal contours are unremarkable. Osseous structures are intact. CONCLUSION: No acute disease. Matthew Brasher MD on June 17, 2017 at 18:47 Board Certified Radiologist. This report was verified electronically.
[2017-06-17 18:53] LABS: APTT (PATIENT) 31.5 SEC (24.3-30.1); INTERNATIONAL NORMALIZED RATIO 1.1 RATIO
[2017-06-17 18:57] LABS: CKMB LESS THAN 0.5 NG/ML (0.5-3.6)
[2017-06-17] MEDS ORDERED: CALCIUM CARBONATE 500 MG CHEWABLE TAB CHEW ONE (19:00)
--- NOTE | 2017-06-18 11:37 | EKG ---
Date Performed: 06/17/2017 Time Performed: 18:03:04 PTAGE: 31 years EKG: Sinus rhythm NORMAL ECG Compared to prior tracing no significant change PREVIOUS TRACING : 01/20/2017 21.30 DOCTOR: Tio Ogden Interpretating Date/Time 06/18/2017 11:36:54
== END 2017-06-17 20:31 | disposition home or self-care (01) ==
LOC: NEPD 17:46
DX: R07.9 Chest pain, unspecified (principal); E83.51 Hypocalcemia; Z88.0 Allergy status to penicillin
CPT/HCPCS: 71010; 80048; 82550; 82552; 83735; 84484; 84703; 85025; 85610; 85730; 93005

== ENCOUNTER 2017-09-16 14:34 | Emergency (ER) | payer MEDICAID ==
[~2017-09-16] VITALS: Ht 162.6 cm; Wt 64.5 kg
[2017-09-16] VITALS (7 sets, daily range): BP systolic 93–105; BP diastolic 53–70; PULSE 64–80; RESP 16–25; TEMP 98.2; O2SAT 96–100
[~2017-09-16 14:34] MED LIST changes: -ASPI81TA11 PO; +AZIT500T2 PO; +BENZ100 PO; -CLIN1CAP6 PO; +IBUP1TAB7 PO; +PRED-503 PO; +VENTAER INH
[2017-09-16] MEDS ORDERED: SODIUM CHLOR 0.9% 1000 ML INJ 1,000 ML IV ONE (15:05)
[2017-09-16] MEDS ORDERED: SODIUM CHLORIDE 0.9% FLUSH 10 ML FLUSH IVF PRN (15:15)
[2017-09-16] MEDS ORDERED: MECLIZINE HCL 25 MG TAB PO ONE (15:15)
--- NOTE | 2017-09-16 15:46 | PD ---
HPI Chief Complaint: Neuro Symptoms/ Deficits Time Seen by Provider: 15:09 Travel History International Travel<30 days: No Contact w/Intl Traveler<30days: No Traveled to known affect area: No History of Present Illness HPI 32-year-old female presents to the ED for evaluation of sudden onset of dizziness, weakness and 8/10 chest pain while walking to her son's school this afternoon. She describes the chest pain as left-sided, sharp and accompanied by palpitations and numbness and tingling of the left arm. She denies accompanying nausea, vomiting, diaphoresis. She states that she's been well otherwise. Denies recent history of fever, chills, headache, vision changes, nausea, vomiting, changes in bowel habits, dysuria, back pain. She denies risk of . She states that she has a history of "acute myocardial infarction." She takes no daily medications. PFSH Past Medical History Asthma: Yes Blood Disorders: Yes (THROMBOCYTOPENIA DURING ) Anxiety: Yes Depression: Yes Heart Rhythm Problems: No Cardiac Catheterization: No Cardiovascular Problems: No High Cholesterol: No Congestive Heart Failure: No Diabetes: No Diminished Hearing: No Endocrine: No Gastrointestinal Disorders: No Headaches: Yes Heparin Induced Thrombocytopen: No Hypertension: No Immune Disorder: No Psychiatric: Yes Reproductive: Yes (ENDOMETROSIS) Integumentary: Yes Immunizations Current: No Migraines: Yes Myocardial Infarction: Yes Tetanus Vaccination: Unknown Influenza Vaccination: No ?: Not LMP: 09/14/17 Menopausal: No : 3 Para: 2 Miscarriage: 1 : 0 Ovarian Cysts: Yes Tubal Ligation: Yes Past Surgical History Abdominal Surgery: Yes Coronary Artery Bypass Graft: No Genitourinary Surgery: Yes Gynecologic Surgery: Yes (LAP ovarian cysts) Other Surgery: Yes Family History Family Myocardial Infarction: Yes (father) Social History Alcohol Use: Yes (occ) Tobacco Use: Yes (1 ppd) Substance Use: No Allergies-Medications (Allergen,Severity, Reaction): Coded Allergies: Sulfa (Sulfonamide Antibiotics) (Unverified Allergy, Mild, RASH, 09/16/17) penicillin G (Unverified Allergy, Mild, RASH, 09/16/17) Reported Meds & Prescriptions Reported Meds & Active Scripts Active Ventolin Hfa 18 GM Inh (Albuterol Sulfate) 90 Mcg/Act Aer 2 Puff INH Q4-6H PRN Tessalon Perles (Benzonatate) 100 Mg Cap 100 Mg PO TID PRN 3 Days Review of Systems Except as stated in HPI: all other systems reviewed are Neg Physical Exam Narrative GENERAL: Well-nourished, well-developed black female in no acute distress. SKIN: Focused skin assessment warm/dry. HEAD: Normocephalic. EYES: No scleral icterus. No injection or drainage. NECK: Supple, trachea midline. No JVD or lymphadenopathy. CARDIOVASCULAR: Regular rate and rhythm without murmurs, gallops, or rubs. RESPIRATORY: Breath sounds clear and equal bilaterally. No accessory muscle use. GASTROINTESTINAL: Abdomen soft, non-tender, nondistended. Active bowel sounds. MUSCULOSKELETAL: No cyanosis, or edema. NEUROLOGICAL: Awake and alert. Cranial nerves II through XII intact. Motor and sensory grossly within normal limits. Five out of 5 muscle strength in all muscle groups. Normal speech. BACK: Nontender without obvious deformity. No CVA tenderness. Data Data Last Documented VS Vital Signs Date Time Temp Pulse Resp B/P (MAP) Pulse Ox O2 Delivery O2 Flow Rate FiO2 09/16/17 19:15 75 25 98/53 (68) 97 Room Air 09/16/17 14:36 98.2 Orders Orders Electrocardiogram (09/16/17 15:05) Ed Urine Pregnancytest Poc (09/16/17 15:05) Complete Blood Count With Diff (09/16/17 15:05) Comprehensive Metabolic Panel (09/16/17 15:05) Ckmb (Isoenzyme) Profile (09/16/17 15:05) Troponin I (09/16/17 15:05) Act Partial Throm Time (Ptt) (09/16/17 15:05) Prothrombin Time / Inr (Pt) (09/16/17 15:05) Urinalysis - C+S If Indicated (09/16/17 15:05) Chest, Single Ap (09/16/17 15:05) Ct Brain W/O Iv Contrast(Rout) (09/16/17 15:05) Ecg Monitoring (09/16/17 15:05) Iv Access Insert/Monitor (09/16/17 15:05) Oximetry (09/16/17 15:05) Meclizine (Antivert) (09/16/17 15:15) Sodium Chloride 0.9% Flush (Ns Flush) (09/16/17 15:15) Sodium Chlor 0.9% 1000 Ml Inj (Ns 1000 M (09/16/17 15:05) Orthostatic Vital Signs (09/16/17 16:59) CKMB (09/16/17 15:35) CKMB% (09/16/17 15:35) Ed Discharge Order (09/16/17 17:23) Labs Laboratory Tests Test 09/16/17 15:35 White Blood Count 7.4 TH/MM3 Red Blood Count 4.98 MIL/MM3 Hemoglobin 13.4 GM/DL Hematocrit 41.6 % Mean Corpuscular Volume 83.5 FL Mean Corpuscular Hemoglobin 26.8 PG Mean Corpuscular Hemoglobin Concent 32.1 % Red Cell Distribution Width 15.7 % Platelet Count 190 TH/MM3 Mean Platelet Volume 10.4 FL Neutrophils (%) (Auto) 58.6 % Lymphocytes (%) (Auto) 30.6 % Monocytes (%) (Auto) 6.4 % Eosinophils (%) (Auto) 4.1 % Basophils (%) (Auto) 0.3 % Neutrophils # (Auto) 4.3 TH/MM3 Lymphocytes # (Auto) 2.3 TH/MM3 Monocytes # (Auto) 0.5 TH/MM3 Eosinophils # (Auto) 0.3 TH/MM3 Basophils # (Auto) 0.0 TH/MM3 CBC Comment DIFF FINAL Differential Comment Prothrombin Time 11.0 SEC Prothromb Time International Ratio 1.0 RATIO Activated Partial Thromboplast Time 28.0 SEC Urine Color YELLOW Urine Turbidity HAZY Urine pH 5.5 Urine Specific [place] 1.017 Urine Protein NEG mg/dL Urine Glucose (UA) NEG mg/dL Urine Ketones NEG mg/dL Urine Occult Blood NEG Urine Nitrite NEG Urine Bilirubin NEG Urine Urobilinogen LESS THAN 2.0 MG/DL Urine Leukocyte Esterase NEG Urine WBC 3 /hpf Urine Squamous Epithelial Cells 5 /hpf Urine Amorphous Sediment RARE Urine Mucus FEW /lpf Microscopic Urinalysis Comment CULT NOT INDICATED Blood Urea Nitrogen 11 MG/DL Creatinine 0.87 MG/DL Random Glucose 75 MG/DL Total Protein 8.3 GM/DL Albumin 4.2 GM/DL Calcium Level 9.2 MG/DL Alkaline Phosphatase 59 U/L Aspartate Amino Transf (AST/SGOT) 18 U/L Alanine Aminotransferase (ALT/SGPT) 22 U/L Total Bilirubin 0.5 MG/DL Sodium Level 139 MEQ/L Potassium Level 4.0 MEQ/L Chloride Level 107 MEQ/L Carbon Dioxide Level 25.5 MEQ/L Anion Gap 7 MEQ/L Estimat Glomerular Filtration Rate 91 ML/MIN Total Creatine Kinase 167 U/L Creatine Kinase MB 0.6 NG/ML Troponin I LESS THAN 0.02 NG/ML MDM Medical Decision Making Medical Screen Exam Complete: Yes Emergency Medical Condition: Yes Differential Diagnosis Orthostatic hypotension versus metabolic derangement versus less likely TIA versus less likely ACS versus other Narrative Course 32-year-old female presents to the ED for evaluation of sudden onset of dizziness, weakness and 8/10 chest pain while walking to her son's school this afternoon. She describes the chest pain as left-sided, sharp and accompanied by palpitations and numbness and tingling of the left arm. She denies accompanying nausea, vomiting, diaphoresis, recent history of fever, chills, headache, vision changes, nausea, vomiting, changes in bowel habits, dysuria, back pain, risk of . She states that she has a history of "acute myocardial infarction." She takes no daily medications. Vitals reviewed. Patient is hypotensive on presentation but exam is otherwise reassuring. No focal neuro deficits. No appreciable M/R/G. IV was established. Patient was administered 1 L normal saline. EKG rate 69, sinus rhythm. Normal intervals. Normal axis. No ST changes. Reviewed by Dr. Montelongo Vitals negative for orthostatic retention. CXR: No acute disease per radiology read. Cardiac enzymes negative 1. CT of the brain normal per radiology read. No concerning abnormalities of CBC, CMP, coags. No culture of the UA indicated. ED urine Prevacid test negative. I reviewed the patient's record. She underwent heart catheter 12/08/16 which was normal with normal filling pressures. She also had MRA of the head and neck on 09/10/16 which was normal. I discussed the patient with Dr. shepherd and we agree that this patient is safe for discharge with outpatient follow-up. I discussed the results of the workup and plan with the patient who is agreeable. She does not currently have a PCP, the [facility] information was provided. She is instructed to return to normal, gentle activities as tolerated , follow up with the [facility]. She is stable and discharged home. Diagnosis Primary Impression: Dizziness Additional Impression: Chest pain Qualified Codes: R07.9 - Chest pain, unspecified Referrals: [facility] Primary Care Physician Patient Instructions: Dizziness (ED), General Instructions Additional Instructions: Rest, hydrate. Return to normal, gentle activity as tolerated. Follow-up with your primary care provider this week. If you do not have a primary care provider seek treatment at the [facility]. Return to the ED for any urgent or emergent medical condition. Disposition: 01 DISCHARGE HOME Condition: Stable Addie Blandon Sep 16, 2017 15:46
--- NOTE | 2017-09-16 15:54 | PD ---
Physical Exam Date Seen by Provider: Sep 16, 2017 Narrative This patient presents with the acute onset of lightheadedness Data Data Last Documented VS Vital Signs Date Time Temp Pulse Resp B/P (MAP) Pulse Ox O2 Delivery O2 Flow Rate FiO2 09/16/17 15:01 72 18 101/57 (72) 100 09/16/17 14:36 98.2 Room Air Orders Orders Electrocardiogram (09/16/17 15:05) Ed Urine Pregnancytest Poc (09/16/17 15:05) Complete Blood Count With Diff (09/16/17 15:05) Comprehensive Metabolic Panel (09/16/17 15:05) Ckmb (Isoenzyme) Profile (09/16/17 15:05) Troponin I (09/16/17 15:05) Act Partial Throm Time (Ptt) (09/16/17 15:05) Prothrombin Time / Inr (Pt) (09/16/17 15:05) Urinalysis - C+S If Indicated (09/16/17 15:05) Chest, Single Ap (09/16/17 15:05) Ct Brain W/O Iv Contrast(Rout) (09/16/17 15:05) Ecg Monitoring (09/16/17 15:05) Iv Access Insert/Monitor (09/16/17 15:05) Oximetry (09/16/17 15:05) Meclizine (Antivert) (09/16/17 15:15) Sodium Chloride 0.9% Flush (Ns Flush) (09/16/17 15:15) Sodium Chlor 0.9% 1000 Ml Inj (Ns 1000 M (09/16/17 15:05) MDM Supervised Visit with PIERRE: Yes Narrative Course I, Dr. Montelongo, have reviewed the advance practice practitioner's documentation and am in agreement, met with the patient face to face, made the diagnosis, and the medical decision making was done by me. *My assessment and Findings: The patient has ambulated to the restroom without any focal neurological deficits noted. Please see Addie Blandon PA-C's note for results of laboratory and radiographic evaluation, ED course, final diagnosis and disposition Elizabeth Montelongo MD Sep 16, 2017 15:54
--- NOTE | 2017-09-16 16:05 | RADRPT ---
EXAM DATE/TIME: 09/16/2017 15:39 [facility] COMPARISON: CT BRAIN W/O CONTRAST, September 08, 2016, 22:38. INDICATIONS : Dizziness. RADIATION DOSE: 56.35 CTDIvol (mGy) MEDICAL HISTORY : None SURGICAL HISTORY : Tubal ligation. ENCOUNTER: Initial ACUITY: 1 day PAIN SCALE: 0/10 LOCATION: cranial TECHNIQUE: Multiple contiguous axial images were obtained of the head. Using automated exposure control and adj ustment of the mA and/or kV according to patient size, radiation dose was kept as low as reasonably a chievable to obtain optimal diagnostic quality images. DICOM format image data is available electro nically for review and comparison. FINDINGS: CEREBRUM: The ventricles are normal. No evidence of midline shift, mass lesion, hemorrhage or acute infarction . No extra-axial fluid collections are seen. POSTERIOR FOSSA: The cerebellum and brainstem are intact. The 4th ventricle is midline. The cerebellopontine angle i s unremarkable. EXTRACRANIAL: Visualized sinuses are clear. SKULL: The calvaria is intact. No evidence of skull fracture. CONCLUSION: Negative noncontrast head CT. Foster Howard MD on September 16, 2017 at 15:59 Board Certified Radiologist. This report was verified electronically.
--- NOTE | 2017-09-16 16:16 | RADRPT ---
EXAM DATE/TIME: 09/16/2017 15:28 [facility] COMPARISON: CHEST SINGLE AP, March 03, 2014, 15:30. CHEST SINGLE AP, June 17, 2017, 18:01. INDICATIONS : Left side chest pain. MEDICAL HISTORY : None. SURGICAL HISTORY : None. ENCOUNTER: Initial ACUITY: 2 days PAIN SCORE: 7/10 LOCATION: Left chest FINDINGS: A single view of the chest demonstrates the lungs to be symmetrically aerated without evidence of mas s, infiltrate or effusion. The cardiomediastinal contours are unremarkable. Benign appearing sclerot ic coarsening of the trabecular markings in the left scapula may reflect Paget's disease. CONCLUSION: No acute cardiopulmonary disease Foster Chaney MD on September 16, 2017 at 16:11 Board Certified Radiologist. This report was verified electronically.
[2017-09-16 16:17] LABS: AUTOMATED NEUTROPHIL # 4.3 TH/MM3 (1.8-7.7); BASOPHIL % 0.3 % (0.0-2.0); EOSINOPHIL # 0.3 TH/MM3 (0-0.4); EOSINOPHIL % 4.1 % (0.0-4.0); HEMATOCRIT 41.6 % (35.0-46.0); HEMO FLAGS DIFF FINAL; LYMPH % 30.6 % (9.0-44.0); LYMPHOCYTE # 2.3 TH/MM3 (1.0-4.8); MEAN CELL VOLUME 83.5 FL (80.0-100.0); MEAN CORPUSCULAR HEMOGLOBIN 26.8 PG (27.0-34.0); MEAN CORPUSCULAR HGB CONC 32.1 % (32.0-36.0); MONO % 6.4 % (0.0-8.0); NEUT % 58.6 % (16.0-70.0); PLATELET COUNT 190 TH/MM3 (150-450); RED BLOOD COUNT 4.98 MIL/MM3 (4.00-5.30); RED CELL DISTRIBUTION WIDTH 15.7 % (11.6-17.2); WHITE BLOOD COUNT 7.4 TH/MM3 (4.0-11.0)
[2017-09-16 16:38] LABS: BLOOD, URINE NEG (NEG); COMMENT (UR) CULT NOT INDICATED; CULTURE IF INDICATED CULT NOT INDICATED; GLUCOSE,URINE NEG (NEG); KETONE, URINE NEG (NEG); MUCUS URINE FEW /lpf (OCC); NITRITE,URINE NEG (NEG); PH, URINE 5.5 (5.0-8.5); SQUAMOUS EPITHELIAL CELL URINE 5 /hpf (0-5); URINE COLOR YELLOW (YELLW/STRAW)
[2017-09-16 16:47] LABS: ALT (GPT) 22 U/L (10-53); ANION GAP 7 MEQ/L (5-15); BICARBONATE 25.5 MEQ/L (21.0-32.0); BLOOD UREA NITROGEN 11 MG/DL (7-18); CHLORIDE 107 MEQ/L (98-107); GLOMERULAR FILTRATION RATE 91 ML/MIN (>89); SODIUM (NA) 139 MEQ/L (136-145)
[2017-09-16 17:00] LABS: ALKALINE PHOSPHATASE 59 U/L (45-117); AST (GOT) 18 U/L (15-37); CREATINE KINASE 167 U/L (26-192); TOTAL BILIRUBIN ADULT 0.5 MG/DL (0.2-1.0)
[2017-09-16 17:12] LABS: CKMB 0.6 NG/ML (0.5-3.6)
--- NOTE | 2017-09-16 19:36 | EKG ---
Date Performed: 09/16/2017 Time Performed: 14:54:25 PTAGE: 32 years EKG: Sinus rhythm NORMAL ECG No significant change from prior electrocardiogram. PREVIOUS TRACING : 06/17/2017 18.03 DOCTOR: Narendra Finney Interpretating Date/Time 09/16/2017 19:35:34
== END 2017-09-16 19:20 | disposition home or self-care (01) ==
LOC: NEPC 14:34
DX: R42 Dizziness and giddiness (principal); R07.9 Chest pain, unspecified; I25.2 Old myocardial infarction; F17.210 Nicotine dependence, cigarettes, uncomplicated
CPT/HCPCS: 70450; 71010; 80053; 81001; 82550; 82552; 84484; 84703; 85025; 85610; 85730; 93005; 96360; 99285; J7030

== ENCOUNTER 2017-11-05 22:51 | Emergency (ER) | payer MEDICAID ==
[~2017-11-05] VITALS: Ht 162.6 cm; Wt 65.0 kg
[~2017-11-05 22:51] MED LIST changes: -AZIT500T2 PO; -IBUP1TAB7 PO; -PRED-503 PO
[2017-11-05 22:52] VITALS: BP 120/65; PULSE 87; RESP 16; TEMP 97.6; O2SAT 100
[2017-11-05] MEDS ORDERED: ROBA750T PO (23:43)
[2017-11-05] MEDS ORDERED: IBUP-232 PO (23:43)
--- NOTE | 2017-11-05 23:43 | PD ---
HPI Chief Complaint: Back/ Neck Pain or Injury Time Seen by Provider: 23:29 Travel History International Travel<30 days: No Contact w/Intl Traveler<30days: No Traveled to known affect area: No History of Present Illness HPI 32-year-old female complains of neck pain and back pain. Patient states that the pain started today. Patient denies any injury. Patient states the pain is cramping pain started on the neck area with radiation to the back. Patient denies any fever chills. Patient denies any focal weakness or numbness of the extremity. Patient has history of neck pain associated with disc disease in the past. Patient had MRI of the neck done in the past. Patient was on physical therapy in the past. Patient is on Lyrica for pain. PFSH Past Medical History Asthma: Yes Blood Disorders: Yes (THROMBOCYTOPENIA DURING ) Anxiety: Yes Depression: Yes Heart Rhythm Problems: No Cancer: No Cardiac Catheterization: No Cardiovascular Problems: No High Cholesterol: No Congestive Heart Failure: No Diabetes: No Diminished Hearing: No Endocrine: No Gastrointestinal Disorders: No Genitourinary: No Headaches: Yes Heparin Induced Thrombocytopen: No Hypertension: No Immune Disorder: No Psychiatric: Yes Reproductive: Yes (ENDOMETROSIS) Respiratory: No Integumentary: Yes Immunizations Current: Yes Migraines: Yes Myocardial Infarction: Yes Tetanus Vaccination: Unknown Influenza Vaccination: No ?: Not Menopausal: No : 3 Para: 2 Miscarriage: 1 : 0 Ovarian Cysts: Yes Tubal Ligation: Yes Past Surgical History Abdominal Surgery: Yes Coronary Artery Bypass Graft: No Genitourinary Surgery: Yes Gynecologic Surgery: Yes (LAP ovarian cysts) Other Surgery: Yes Family History Family Myocardial Infarction: Yes (father) Social History Alcohol Use: Yes (occ) Tobacco Use: Yes (1 ppd) Substance Use: No Allergies-Medications (Allergen,Severity, Reaction): Coded Allergies: Sulfa (Sulfonamide Antibiotics) (Unverified Allergy, Mild, RASH, 11/05/17) penicillin G (Unverified Allergy, Mild, RASH, 11/05/17) Reported Meds & Prescriptions Reported Meds & Active Scripts Active Robaxin (Methocarbamol) 750 Mg Tab 750 Mg PO QID Ibuprofen 600 Mg Tab 600 Mg PO TID Ventolin Hfa 18 GM Inh (Albuterol Sulfate) 90 Mcg/Act Aer 2 Puff INH Q4-6H PRN Review of Systems General / Constitutional: No: Fever Eyes: No: Visual changes HENT: Positive: Neck Pain, No: Headaches Cardiovascular: No: Chest Pain or Discomfort Respiratory: No: Shortness of Breath Gastrointestinal: No: Abdominal Pain Genitourinary: No: Dysuria Musculoskeletal: No: Pain Skin: No Rash Neurologic: No: Weakness Psychiatric: No: Depression Endocrine: No: Polydipsia Hematologic/Lymphatic: No: Easy Bruising Physical Exam Narrative GENERAL: Well-nourished, well-developed patient. SKIN: Focused skin assessment warm/dry. HEAD: Normocephalic. EYES: No scleral icterus. No injection or drainage. NECK: Supple, trachea midline. No JVD or lymphadenopathy. Patient has moderate tenderness on palpation paravertebral cervical area. No midline tenderness. No meningismus. CARDIOVASCULAR: Regular rate and rhythm without murmurs, gallops, or rubs. RESPIRATORY: Breath sounds equal bilaterally. No accessory muscle use. GASTROINTESTINAL: Abdomen soft, non-tender, nondistended. MUSCULOSKELETAL: No cyanosis, or edema. BACK: Patient has mild to moderate diffuse tenderness over the vertebral areas thoracic area, without obvious deformity. No CVA tenderness. Neurologic exam normal. Data Data Last Documented VS Vital Signs Date Time Temp Pulse Resp B/P (MAP) Pulse Ox O2 Delivery O2 Flow Rate FiO2 11/05/17 23:46 11/05/17 22:52 97.6 87 16 100 Room Air Orders Orders Ketorolac Inj (Toradol Inj) (11/05/17 23:45) Ed Discharge Order (11/05/17 23:43) MDM Medical Decision Making Medical Screen Exam Complete: Yes Emergency Medical Condition: Yes Differential Diagnosis Differential diagnosis including strain, fracture, HNP. Narrative Course 32-year-old female complaining neck pain and back pain. Nontraumatic. History of chronic neck pain in the past. Diagnosis Primary Impression: Cervical strain, acute Qualified Codes: S16.1XXA - Strain of muscle, fascia and tendon at neck level , initial encounter Additional Impression: Strain of thoracic region Qualified Codes: S29.019A - Strain of muscle and tendon of unspecified wall of thorax, initial encounter Patient Instructions: General Instructions Additional Instructions: Take medication as directed for pain. Follow-up with personal physician and orthopedist. Med/Other Pt SpecificInfo: Prescription(s) given Scripts Methocarbamol (Robaxin) 750 Mg Tab 750 MG PO QID for Muscle Spasm, #60 TAB 0 Refills Prov: Fili Blanton MD 11/05/17 Ibuprofen (Ibuprofen) 600 Mg Tab 600 MG PO TID for Pain, #60 TAB 0 Refills Prov: Fili Blanton MD 11/05/17 Disposition: 01 DISCHARGE HOME Condition: Stable Fili Blanton MD Nov 05, 2017 23:43
[2017-11-05] MEDS ORDERED: KETOROLAC TROMETHAMINE 60 MG/2 ML (IM) VIAL IM ONE (23:45)
== END 2017-11-06 00:16 | disposition home or self-care (01) ==
LOC: NEPC 22:51
DX: S16.1XXA Strain of muscle, fascia and tendon at neck level, initial encounter (principal); S29.012A Strain of muscle and tendon of back wall of thorax, initial encounter; F17.200 Nicotine dependence, unspecified, uncomplicated; J45.909 Unspecified asthma, uncomplicated; X58.XXXA Exposure to other specified factors, initial encounter
CPT/HCPCS: 96372; 99284; J1885

== ENCOUNTER 2017-12-09 22:53 | Emergency (ER) | payer MEDICAID ==
[~2017-12-09] VITALS: Ht 162.6 cm; Wt 65.0 kg
[~2017-12-09 22:53] MED LIST changes: -BENZ100 PO; +IBUP-232 PO; +ROBA750T PO
[2017-12-09 22:55] VITALS: BP 105/57; PULSE 88; RESP 20; TEMP 98.5; O2SAT 100
[2017-12-09 23:08] VITALS: PULSE 74; RESP 18; O2SAT 100
--- NOTE | 2017-12-09 23:43 | PD ---
HPI Chief Complaint: Cold / Flu Symptoms Time Seen by Provider: 23:38 Travel History International Travel<30 days: No Contact w/Intl Traveler<30days: No Traveled to known affect area: No History of Present Illness HPI 32-year-old female presents to the emergency department for complaint of 2 days of cough congestion and shortness of breath. Patient has history of asthma bronchitis. Patient denies fever chills. Patient has myalgias and arthralgias. Last period is now and denies . PFSH Past Medical History Narrative Medical Asthma migraine thrombocytopenia normal cardiac catheterization; tobacco use; nursing notes reviewed Asthma: Yes Blood Disorders: Yes (THROMBOCYTOPENIA DURING ) Anxiety: Yes Depression: Yes Heart Rhythm Problems: No Cancer: No Cardiac Catheterization: No Cardiovascular Problems: No High Cholesterol: No Congestive Heart Failure: No Diabetes: No Diminished Hearing: No Endocrine: No Gastrointestinal Disorders: No Genitourinary: No Headaches: Yes Heparin Induced Thrombocytopen: No Hypertension: No Immune Disorder: No Psychiatric: Yes Reproductive: Yes (ENDOMETROSIS) Respiratory: No Integumentary: Yes Immunizations Current: Yes Migraines: Yes Myocardial Infarction: Yes Tetanus Vaccination: < 5 Years Influenza Vaccination: No ?: Not LMP: 12/09/2017 Menopausal: No : 3 Para: 2 Miscarriage: 1 : 0 Ovarian Cysts: Yes Tubal Ligation: Yes Past Surgical History Abdominal Surgery: Yes Coronary Artery Bypass Graft: No Genitourinary Surgery: Yes Gynecologic Surgery: Yes (LAP ovarian cysts) Other Surgery: Yes Family History Family Myocardial Infarction: Yes (father) Social History Alcohol Use: Yes (occ) Tobacco Use: Yes (1 ppd) Substance Use: No Allergies-Medications (Allergen,Severity, Reaction): Coded Allergies: Sulfa (Sulfonamide Antibiotics) (Unverified Allergy, Mild, RASH, 12/09/17) penicillin G (Unverified Allergy, Mild, RASH, 12/09/17) Reported Meds & Prescriptions Reported Meds & Active Scripts Active Ibuprofen 600 Mg Tab 600 Mg PO TID Ventolin Hfa 18 GM Inh (Albuterol Sulfate) 90 Mcg/Act Aer 2 Puff INH Q4-6H PRN Review of Systems Except as stated in HPI: all other systems reviewed are Neg Physical Exam Narrative GENERAL: Well-developed well-nourished female in no acute distress no respiratory distress SKIN: Warm and dry. HEAD: Normocephalic. EYES: No scleral icterus. No injection or drainage. NECK: Supple, trachea midline. No JVD or lymphadenopathy. CARDIOVASCULAR: Regular rate and rhythm without murmurs, gallops, or rubs. RESPIRATORY: Breath sounds equal bilaterally. No accessory muscle use. GASTROINTESTINAL: Abdomen soft, non-tender, nondistended. MUSCULOSKELETAL: No cyanosis, or edema. BACK: Nontender without obvious deformity. No CVA tenderness. Data Data Last Documented VS Vital Signs Date Time Temp Pulse Resp B/P (MAP) Pulse Ox O2 Delivery O2 Flow Rate FiO2 12/09/17 23:08 74 18 100 Room Air 12/09/17 22:55 98.5 Orders Orders Chest, Single Ap (12/09/17 ) Influenzae A/B Antigen (12/09/17 23:38) [facility] Medical Decision Making Medical Screen Exam Complete: Yes Emergency Medical Condition: Yes Medical Record Reviewed: Yes Interpretation(s) Chest x-ray: No lobar infiltrate Influenza A/B antigen: Negative Differential Diagnosis Cough, pneumonia, bronchitis, influenza Narrative Course Chest x-ray and influenza antigen ordered Patient aware if the test is negative and chest x-ray shows no pneumonia; patient will be started on azithromycin for bronchitis along with rescue inhaler and Medrol Dosepak Diagnosis Primary Impression: Bronchitis Referrals: Primary Care Physician call for appointment Patient Instructions: General Instructions Departure Forms: Tests/Procedures, Work Release Special Instructions: no work x 1 day Additional Instructions: Acetaminophen as needed for fever Return to the emergency department for any concerns Increase fluid hydration Take medication as prescribed Med/Other Pt SpecificInfo: Prescription(s) given Scripts Azithromycin (Zithromax Z-Chase) 250 Mg Dspk 250 MG PO DIRECTED for Infection, #1 DSPK 0 Refills 500 MG (2 tabs) day 1, then 1 tab days 2-5. Prov: Melanie Frank MD 12/10/17 Methylprednisolone Dosepak (Medrol Dosepak) 4 Mg Dspk 4 MG PO DIRECTED, #1 DSPK 0 Refills Per Pharmacist direction Prov: Melanie Frank MD 12/10/17 Albuterol 18 GM Inh (Ventolin Hfa 18 GM Inh) 90 Mcg/Act Aer 2 PUFF INH Q4-6H Y for SHORTNESS OF BREATH, #1 INHALER 0 Refills Prov: Melanie Frank MD 12/10/17 Disposition: 01 DISCHARGE HOME Condition: Stable Melanie Frank MD Dec 09, 2017 23:42
[2017-12-10] MEDS ORDERED: ZITHTAB PO (00:14)
[2017-12-10] MEDS ORDERED: MEDR4PAK PO (00:14)
[2017-12-10] MEDS ORDERED: VENTAER INH (00:14)
--- NOTE | 2017-12-10 00:38 | RADRPT ---
EXAM DATE/TIME: 12/09/2017 23:48 [facility] COMPARISON: No previous studies available for comparison. INDICATIONS : Shortness of breath. MEDICAL HISTORY : None. SURGICAL HISTORY : Tubal ligation. ENCOUNTER: Initial ACUITY: 3 days PAIN SCORE: 0/10 LOCATION: Bilateral chest FINDINGS: A single view of the chest demonstrates the lungs to be symmetrically aerated without evidence of mas s, infiltrate or effusion. The cardiomediastinal contours are unremarkable. Osseous structures are intact. CONCLUSION: 1. No active disease. Matthew Brasher MD on December 10, 2017 at 0:35 Board Certified Radiologist. This report was verified electronically.
== END 2017-12-10 00:30 | disposition home or self-care (01) ==
LOC: NEPC 22:53
DX: J45.909 Unspecified asthma, uncomplicated (principal); M79.1 Myalgia; F17.200 Nicotine dependence, unspecified, uncomplicated
CPT/HCPCS: 71045; 84703; 87804; 99284

== ENCOUNTER 2017-12-26 14:30 | Emergency (ER) | payer MEDICAID ==
[~2017-12-26] VITALS: Ht 162.6 cm; Wt 62.0 kg
[~2017-12-26 14:30] MED LIST changes: +MEDR4PAK PO; -ROBA750T PO; +ZITHTAB PO
[2017-12-26 14:31] VITALS: BP 120/60; PULSE 87; RESP 16; TEMP 97.8; O2SAT 100
[2017-12-26] MEDS ORDERED: KETOROLAC TROMETHAMINE 60 MG/2 ML (IM) VIAL IM ONE (16:30)
[2017-12-26] MEDS ORDERED: IBUP-232 PO (16:45)
[2017-12-26] MEDS ORDERED: MAPA500T13 PO (16:45)
--- NOTE | 2017-12-26 16:45 | PD ---
HPI Chief Complaint: Oral / Dental Pain or Problem Time Seen by Provider: 16:15 Travel History International Travel<30 days: No Contact w/Intl Traveler<30days: No Traveled to known affect area: No History of Present Illness HPI [id number] woman who presents to the emergency drink plenty of dental pain. States symptoms started after she had 2 teeth pulled on her lower right side. She has had intermittent pain and swelling since. She got placed on antibiotics and Tylenol 3 by the dentist. He states by that it still hurts. It radiates up into the top of her face. History Past Medical History Medical History: Denies Significant Hx Menopausal: No : 3 Para: 2 Social History Alcohol Use: Yes (occ) Tobacco Use: Yes (1 ppd) Allergies-Medications (Allergen,Severity, Reaction): Coded Allergies: Sulfa (Sulfonamide Antibiotics) (Unverified Allergy, Mild, RASH, 12/09/17) penicillin G (Unverified Allergy, Mild, RASH, 12/09/17) Reported Meds & Prescriptions Reported Meds & Active Scripts Active Review of Systems Except as stated in HPI: all other systems reviewed are Neg Physical Exam Narrative GENERAL: 32-year-old woman, no acute distress. SKIN: Focused skin assessment warm/dry. HEAD: Atraumatic. Normocephalic. EYES: Pupils equal and round. No scleral icterus. No injection or drainage. ENT: No nasal bleeding or discharge. Mucous membranes pink and moist. Teeth are missing and the bottom back. They placed a medicine to a dry socket there. She has some tenderness in the upper T2. Is no visible swelling of the face. There is no swelling in the gums. There is no purulent drainage. NECK: Trachea midline. No JVD. CARDIOVASCULAR: Regular rate and rhythm. No murmur appreciated. RESPIRATORY: No accessory muscle use. Clear to auscultation. Breath sounds equal bilaterally. GASTROINTESTINAL: Abdomen soft, non-tender, nondistended. Hepatic and splenic margins not palpable. MUSCULOSKELETAL: No obvious deformities. No edema. Data Data Last Documented VS Vital Signs Date Time Temp Pulse Resp B/P (MAP) Pulse Ox O2 Delivery O2 Flow Rate FiO2 12/26/17 14:31 97.8 87 16 120/60 (80) 100 Room Air Orders Orders Ketorolac Inj (Toradol Inj) (12/26/17 16:30) [facility] Medical Decision Making Medical Screen Exam Complete: Yes Emergency Medical Condition: Yes Differential Diagnosis Dental pain, facial infection, edema or swelling, other Narrative Course Medical decision making INITIAL: 32-year-old woman presents with dental pain. Looks well. Recommend she follow-up with a dentist. We will place her on some anti-inflammatory pain medicines. Diagnosis Primary Impression: Pain, dental Patient Instructions: General Instructions Departure Forms: Tests/Procedures Additional Instructions: Take medications as prescribed. Follow-up with your dentist. Return to the emergency department if worsening pain swelling or any other new or worsening symptoms. Med/Other Pt SpecificInfo: Prescription(s) given Scripts Acetaminophen (Mapap Extra Strength) 500 Mg Tab 1000 MG PO TID Y for PAIN, #21 TAB 0 Refills Prov: Ryan Guevara MD 12/26/17 Ibuprofen (Ibuprofen) 600 Mg Tab 600 MG PO TID for Pain, #21 TAB 0 Refills Prov: Ryan Guevara MD 12/26/17 Disposition: 01 DISCHARGE HOME Condition: Stable Ryan Guevara MD Dec 26, 2017 16:45
== END 2017-12-26 16:52 | disposition home or self-care (01) ==
LOC: NEPD 14:30
DX: K08.89 Other specified disorders of teeth and supporting structures (principal); F17.200 Nicotine dependence, unspecified, uncomplicated; Z88.2 Allergy status to sulfonamides; Z88.0 Allergy status to penicillin
CPT/HCPCS: 96372; 99283; J1885

== ENCOUNTER 2018-01-24 15:00 | Emergency (ER) | payer MEDICAID ==
[~2018-01-24] VITALS: Ht 165.1 cm; Wt 65.0 kg
[~2018-01-24 15:00] MED LIST changes: +MAPA500T13 PO; -MEDR4PAK PO; -VENTAER INH; -ZITHTAB PO
[2018-01-24 15:02] VITALS: BP 121/69; PULSE 129; RESP 27; TEMP 98; O2SAT 100
[2018-01-24 15:47] VITALS: BP 111/60; PULSE 96; RESP 18; O2SAT 100
[2018-01-24] MEDS ORDERED: SODIUM CHLORIDE 0.9% FLUSH 10 ML FLUSH IVF PRN (16:00)
[2018-01-24] MEDS ORDERED: KETOROLAC TROMETHAMINE 30 MG/ML (IVP) VIAL IV PUSH ONE (16:00)
--- NOTE | 2018-01-24 16:22 | PD ---
HPI Chief Complaint: Chest Pain Time Seen by Provider: 15:23 Travel History International Travel<30 days: No Contact w/Intl Traveler<30days: No Traveled to known affect area: No History of Present Illness HPI This is a 32-year-old female with a history of thrombocytopenia in the past, presents today with complaints of chest pain and shortness of breath. Patient states it started earlier today. She denies any history of previous coronary artery disease. She states she has had chest pain in the past. When asked if she is been worked up for this, she states in the past however they were not able to find anything. The patient has no risk factors for blood clots other than smoking. She is not currently on control pill she has no long car rides or plane rides. She has no previous trauma to her lower extremities. There is no previous history of blood clots. The patient has had tubal ligation. She is a smoker and denies any productive cough. There are no other complaints at time of my examination. PFSH Past Medical History Asthma: Yes Blood Disorders: Yes (THROMBOCYTOPENIA DURING ) Anxiety: Yes Depression: Yes Heart Rhythm Problems: No Cancer: No Cardiac Catheterization: No Cardiovascular Problems: No High Cholesterol: No Congestive Heart Failure: No Diabetes: No Diminished Hearing: No Endocrine: No Gastrointestinal Disorders: No Genitourinary: No Headaches: Yes Heparin Induced Thrombocytopen: No Hypertension: No Immune Disorder: No Psychiatric: Yes Reproductive: Yes (ENDOMETROSIS) Respiratory: No Integumentary: Yes Immunizations Current: Yes Migraines: Yes Myocardial Infarction: Yes ?: Unknown Menopausal: No : 3 Para: 2 Miscarriage: 1 : 0 Ovarian Cysts: Yes Tubal Ligation: Yes Past Surgical History Abdominal Surgery: Yes Coronary Artery Bypass Graft: No Genitourinary Surgery: Yes Gynecologic Surgery: Yes (LAP ovarian cysts) Other Surgery: Yes Family History Family Myocardial Infarction: Yes (father) Social History Alcohol Use: Yes (occ) Tobacco Use: Yes (1 ppd) Substance Use: No Allergies-Medications (Allergen,Severity, Reaction): Coded Allergies: Sulfa (Sulfonamide Antibiotics) (Unverified Allergy, Mild, RASH, 12/09/17) penicillin G (Unverified Allergy, Mild, RASH, 12/09/17) Reported Meds & Prescriptions Reported Meds & Active Scripts Active Ketorolac (Ketorolac Tromethamine) 10 Mg Tab 10 Mg PO TID PRN Medrol Dosepak (Methylprednisolone) 4 Mg Dspk 4 Mg PO DIRECTED Per Pharmacist direction Ibuprofen 600 Mg Tab 600 Mg PO TID Review of Systems Except as stated in HPI: all other systems reviewed are Neg General / Constitutional: No: Fever, Chills HENT: No: Headaches, Neck Pain Cardiovascular: Positive: Chest Pain or Discomfort (Left-sided no radiation.), No: Palpitations Respiratory: Positive: Cough, Shortness of Breath (Nonproductive) Gastrointestinal: No: Nausea, Vomiting, Abdominal Pain Genitourinary: No: Frequency, Dysuria Musculoskeletal: No: Weakness, Pain Skin: No Rash, No Lesions Neurologic: No: Weakness, Headache Psychiatric: No: Substance Abuse Physical Exam Narrative GENERAL: Well-developed well-nourished female in no acute respiratory distress. SKIN: Focused skin assessment warm/dry. HEAD: Atraumatic. Normocephalic. EYES: No scleral icterus. No injection or drainage. ENT: No nasal bleeding or discharge. Mucous membranes pink and moist. NECK: Trachea midline. Supple. CARDIOVASCULAR: Regular rate and rhythm. No murmur appreciated. RESPIRATORY: No accessory muscle use. Clear to auscultation. Breath sounds equal bilaterally. GASTROINTESTINAL: Abdomen soft, non-tender, nondistended. No rebound or guarding. MUSCULOSKELETAL: No obvious deformities. No clubbing. No cyanosis. No edema. NEUROLOGICAL: Awake and alert. No obvious cranial nerve deficits. Motor grossly within normal limits. Normal speech. PSYCHIATRIC: Appropriate mood and affect; insight and judgment normal. Data Data Last Documented VS Vital Signs Date Time Temp Pulse Resp B/P (MAP) Pulse Ox O2 Delivery O2 Flow Rate FiO2 01/24/18 16:59 80 111/63 (79) 118/68 (85) 01/24/18 16:59 18 100 Room Air 01/24/18 15:02 98.0 Orders Orders Basic Metabolic Panel (Bmp) (01/24/18 16:00) Ckmb (Isoenzyme) Profile (01/24/18 16:00) Complete Blood Count With Diff (01/24/18 16:00) D-Dimer (01/24/18 16:00) Magnesium (Mg) (01/24/18 16:00) Prothrombin Time / Inr (Pt) (01/24/18 16:00) Act Partial Throm Time (Ptt) (01/24/18 16:00) Troponin I (01/24/18 16:00) Chest, Single Ap (01/24/18 16:00) Ecg Monitoring (01/24/18 16:00) Bilateral Bp Monitoring (01/24/18 16:00) Iv Access Insert/Monitor (01/24/18 16:00) Oximetry (01/24/18 16:00) Oxygen Administration (01/24/18 16:00) Sodium Chloride 0.9% Flush (Ns Flush) (01/24/18 16:00) Ketorolac Inj (Toradol Inj) (01/24/18 16:00) Electrocardiogram (01/24/18 15:25) CKMB (01/24/18 16:27) CKMB% (01/24/18 16:27) Potassium Chloride (Kcl) (01/24/18 18:15) Labs Laboratory Tests Test 01/24/18 16:27 White Blood Count 9.6 TH/MM3 Red Blood Count 4.27 MIL/MM3 Hemoglobin 11.2 GM/DL Hematocrit 34.7 % Mean Corpuscular Volume 81.2 FL Mean Corpuscular Hemoglobin 26.3 PG Mean Corpuscular Hemoglobin Concent 32.4 % Red Cell Distribution Width 15.1 % Platelet Count 181 TH/MM3 Mean Platelet Volume 10.3 FL Neutrophils (%) (Auto) 61.0 % Lymphocytes (%) (Auto) 28.9 % Monocytes (%) (Auto) 8.1 % Eosinophils (%) (Auto) 1.8 % Basophils (%) (Auto) 0.2 % Neutrophils # (Auto) 5.9 TH/MM3 Lymphocytes # (Auto) 2.8 TH/MM3 Monocytes # (Auto) 0.8 TH/MM3 Eosinophils # (Auto) 0.2 TH/MM3 Basophils # (Auto) 0.0 TH/MM3 CBC Comment DIFF FINAL Differential Comment Prothrombin Time 10.7 SEC Prothromb Time International Ratio 1.1 RATIO Activated Partial Thromboplast Time 29.5 SEC D-Dimer Quantitative (PE/DVT) 0.21 MG/L FEU Blood Urea Nitrogen 9 MG/DL Creatinine 0.82 MG/DL Random Glucose 101 MG/DL Calcium Level 8.4 MG/DL Magnesium Level 2.1 MG/DL Sodium Level 141 MEQ/L Potassium Level 3.4 MEQ/L Chloride Level 108 MEQ/L Carbon Dioxide Level 26.2 MEQ/L Anion Gap 7 MEQ/L Estimat Glomerular Filtration Rate 98 ML/MIN Total Creatine Kinase 258 U/L Creatine Kinase MB 1.0 NG/ML Creatine Kinase MB % 0.4 % Troponin I LESS THAN 0.02 NG/ML MDM Medical Decision Making Medical Screen Exam Complete: Yes Emergency Medical Condition: Yes Differential Diagnosis ACS versus pulmonary embolus versus muscular skeletal pain versus pleurisy versus bronchitis Narrative Course 32-year-old female presents today with complaints of chest pain. Patient has normal EKG and normal cardiac enzymes. D-dimer was within normal limits. The patient is a smoker and has a cough. Given this I was going to treat her with antibiotics, Medrol Dosepak and ketorolac. Upon discussion with her I discussed the findings and my suspicion of possible pleurisy. Patient states she already has antibiotics, steroids and anti-inflammatories. I asked why she did not tell me about this previously. She states she thought she did. The patient will be told to continue her medications as previously prescribed. She is also instructed to follow-up with a primary care physician. Diagnosis Primary Impression: Atypical chest pain Additional Impressions: Cough Tobacco use Additional Instructions: Stop smoking cigarettes. Follow-up with primary care physician Scripts Ketorolac (Ketorolac) 10 Mg Tab 10 MG PO TID Y for Pain Management, #12 TAB 0 Refills Prov: Iván Salgado MD 01/24/18 Methylprednisolone Dosepak (Medrol Dosepak) 4 Mg Dspk 4 MG PO DIRECTED, #1 DSPK 0 Refills Per Pharmacist direction Prov: Iván Salgado MD 01/24/18 Disposition: 01 DISCHARGE HOME Condition: Stable Iván Salgado MD Jan 24, 2018 16:22
--- NOTE | 2018-01-24 16:32 | RADRPT ---
EXAM DATE/TIME: 01/24/2018 16:09 [facility] COMPARISON: CHEST SINGLE AP, December 09, 2017, 23:48. INDICATIONS : Chest pain. MEDICAL HISTORY : None. SURGICAL HISTORY : None. ENCOUNTER: Initial ACUITY: 1 day PAIN SCORE: 7/10 LOCATION: Bilateral chest FINDINGS: A single view of the chest demonstrates the lungs to be symmetrically aerated without evidence of mas s, infiltrate or effusion. The cardiomediastinal contours are unremarkable. Osseous structures are intact. CONCLUSION: No acute disease. Matthew Brasher MD on January 24, 2018 at 16:29 Board Certified Radiologist. This report was verified electronically.
[2018-01-24 16:46] LABS: AUTOMATED NEUTROPHIL # 5.9 TH/MM3 (1.8-7.7); BASOPHIL % 0.2 % (0.0-2.0); EOSINOPHIL # 0.2 TH/MM3 (0-0.4); EOSINOPHIL % 1.8 % (0.0-4.0); HEMATOCRIT 34.7 % (35.0-46.0); HEMOGLOBIN 11.2 GM/DL (11.6-15.3); LYMPH % 28.9 % (9.0-44.0); LYMPHOCYTE # 2.8 TH/MM3 (1.0-4.8); MEAN CELL VOLUME 81.2 FL (80.0-100.0); MEAN CORPUSCULAR HEMOGLOBIN 26.3 PG (27.0-34.0); MEAN CORPUSCULAR HGB CONC 32.4 % (32.0-36.0); MEAN PLATELET VOLUME 10.3 FL (7.0-11.0); MONO % 8.1 % (0.0-8.0); MONOCYTE # 0.8 TH/MM3 (0-0.9); PLATELET COUNT 181 TH/MM3 (150-450); RED BLOOD COUNT 4.27 MIL/MM3 (4.00-5.30); RED CELL DISTRIBUTION WIDTH 15.1 % (11.6-17.2); WHITE BLOOD COUNT 9.6 TH/MM3 (4.0-11.0)
[2018-01-24 16:59] VITALS: BP_SYST 111; BP_SYST 118; BP_DIAS 63; BP_DIAS 68; PULSE 80; RESP 18; O2SAT 100
[2018-01-24 17:04] LABS: TROPONIN I LESS THAN 0.02 NG/ML (0.02-0.05)
[2018-01-24 17:25] LABS: D-DIMER 0.21 MG/L FEU (0.00-0.50); INTERNATIONAL NORMALIZED RATIO 1.1 RATIO; PROTHROMBIN TIME - PATIENT 10.7 SEC (9.8-11.6)
[2018-01-24 17:26] LABS: BICARBONATE 26.2 MEQ/L (21.0-32.0); BLOOD UREA NITROGEN 9 MG/DL (7-18); CALCIUM 8.4 MG/DL (8.5-10.1); CHLORIDE 108 MEQ/L (98-107); CREATININE 0.82 MG/DL (0.50-1.00); GLOMERULAR FILTRATION RATE 98 ML/MIN (>89); GLUCOSE,RANDOM 101 MG/DL (74-106); MAGNESIUM 2.1 MG/DL (1.5-2.5); SODIUM (NA) 141 MEQ/L (136-145)
[2018-01-24] MEDS ORDERED: POTASSIUM CHLORIDE 20 MEQ CONTROLLED RELEASE TAB PO ONE (18:15)
[2018-01-24] MEDS ORDERED: KETO10 PO (18:23)
[2018-01-24] MEDS ORDERED: MEDR4PAK PO (18:23)
[2018-01-24 19:42] VITALS: RESP 20
--- NOTE | 2018-01-25 11:54 | EKG ---
Date Performed: 01/24/2018 Time Performed: 15:25:31 PTAGE: 32 years EKG: Sinus rhythm WITH SINUS ARRHYTHMIA NORMAL ECG PREVIOUS TRACING 09/16/2017 14.54.25 Since the previous tracing, no significant change noted DOCTOR: Lizzette Villegas Interpretating Date/Time 01/25/2018 11:52:28
== END 2018-01-24 19:45 | disposition home or self-care (01) ==
LOC: NEPE 15:00
DX: R07.89 Other chest pain (principal); R05 Cough; F17.210 Nicotine dependence, cigarettes, uncomplicated; I49.9 Cardiac arrhythmia, unspecified; J45.909 Unspecified asthma, uncomplicated; F32.9 Major depressive disorder, single episode, unspecified; Z88.0 Allergy status to penicillin; Z88.2 Allergy status to sulfonamides
CPT/HCPCS: 71045; 80048; 82550; 82552; 83735; 84484; 85025; 85379; 85610; 85730; 93005; 96374; 99285; J1885